=== PATIENT | female | born 1965 | race Caucasian/White ===

== ENCOUNTER → 2020-07-03 12:39 | Outpatient (CLI) | payer MEDICARE, SELFPAY ==
--- NOTE | ~2020-07-03 | MM_ITS ---
EXAMINATION: MM screening more BI w hector HISTORY: Screening TECHNIQUE: Craniocaudal and mediolateral oblique 3-D tomosynthesis images were obtained and synthetic 2-D images were generated. CAD analysis was submitted and interpreted. COMPARISON: Comparison to multiple prior studies sequentially, with oldest reviewed study dated 02/18. BREAST PARENCHYMAL COMPOSITION: There are scattered areas of fibroglandular density. FINDINGS: . The right breast is stable without evidence for malignancy. There are multiple developing masses scattered throughout the left breast. IMPRESSION: 1. Developing left breast masses. 2. Additional mammographic views and possible breast ultrasound are recommended. BI-RADS Category 0: Incomplete: Needs additional imaging evaluation. Reviewed, dictated and finalized at location A. IMPRESSION: 1. Developing left breast masses. 2. Additional mammographic views and possible breast ultrasound are recommended . BI-RADS Category 0: Incomplete: Needs additional imaging evaluation.
== END ==
PROVIDERS: Visit Provider Nurse Practitioner Obstetrics & Gynecology
DX: Z12.31 Encounter for screening mammogram for malignant neoplasm of breast (principal); N63.25 Unspecified lump in the left breast, overlapping quadrants
CPT/HCPCS: 77063; 77067

== ENCOUNTER → 2020-07-17 08:33 | Outpatient (CLI) | payer MEDICARE, SELFPAY ==
--- NOTE | ~2020-07-17 | MMUS_ITS ---
EXAMINATION: MM diagnostic mammo unilat LT, US breast LT complete HISTORY: Developing left breast masses reported on 07/03/2020 bilateral digital screening mammogram TECHNIQUE: Additional 3-D tomosynthesis images of the left breast were performed and synthetic 2-D im ages were generated. CAD analysis was submitted and interpreted. High resolution complete left breast ultrasound was performed. COMPARISON: 07/03/2020, 03/23/2018 bilateral digital screening mammogram examinations FINDINGS: MAMMOGRAPHIC FINDINGS: There is an approximately 8 mm lobular opacity at approximately 12:00 position, situated 6 cm deep to the nipple on craniocaudal view (MLO Tomosynthesis image 36/75). Circumscribed oval approximately 7.4 mm opacity in the upper outer quadrant of the left breast (ML To mosynthesis image 26/75). 5.6 mm oval circumscribed opacity in the lower inner quadrant of the left breast (mL Tomosynthesis (M L image 44/75). 7 mm circumscribed opacity in the posterior upper outer left breast (ML Tomosynthesis image 18/75). 4 mm circumscribed opacity situated anteriorly in the upper outer quadrant (ML Tomosynthesis image 23 /75) ULTRASOUND: 12:00 4 cm from nipple: Parallel circumscribed sonolucency measuring approximately 2 x 9 x 6 mm dimen sean, likely a benign cyst 1:00 areolar area: 3.5 x 5.1 mm x 4.7 mm rounded lesion with suggestion of a fatty hilus, likely a be nign lymph node 2:00 7 cm from nipple: 4.8 x 4.4 mm hypoechoic lesion without internal vascularity or posterior shado wing 8:00 4 cm from nipple: Approximately 3.2 x 3.8 mm hypoechoic lesion without internal vascularity or p osterior shadowing 9:00 subareolar area: 2.2 x 3.3 mm hypoechoic lesion without internal vascularity or posterior shadow ing IMPRESSION: 1. Probable benign masses 2. 6 month diagnostic left mammogram and complete left breast ultrasound follow-up are recommended. BI-RADS category 3, probably benign findings. Reviewed, dictated and finalized at location A. IMPRESSION: 1. Probable benign masses 2. 6 month diagnostic left mammogram and complete left breast ultrasound follow -up are recommended. BI-RADS category 3, probably benign findings.
== END ==
PROVIDERS: Visit Provider Nurse Practitioner Obstetrics & Gynecology
DX: R92.8 Other abnormal and inconclusive findings on diagnostic imaging of breast (principal)
CPT/HCPCS: 76641; 77065

== ENCOUNTER 2020-10-15 06:34 | Outpatient (NON) | payer MEDICARE, SELFPAY ==
[2020-10-15 17:51] LABS: SARS-CoV-2 RNA PCR Negative
== END 2020-10-15 06:35 ==
PROVIDERS: PCP Family Medicine; Visit Provider Nurse Practitioner Family
DX: Z20.828 Contact with and (suspected) exposure to other viral communicable diseases (principal); J06.9 Acute upper respiratory infection, unspecified
CPT/HCPCS: 87635; C9803; U0003

== ENCOUNTER 2020-12-16 16:08 | Outpatient (CLI) | payer MEDICARE, SELFPAY ==
--- NOTE | ~2020-12-16 | CT_ITS ---
EXAMINATION: CT abdomen pelvis w con DATE: 12/16/2020 16:51 INDICATION: Left lower quadrant abdominal pain. TECHNIQUE: Computed tomography (CT) of the abdomen and pelvis was performed with 100 mL Omnipaque 350 intravenous contrast. Automated exposure control and iterative reconstruction technique were employe d. The dose-length product was 696.51 mGy-cm. COMPARISON: CT abdomen and pelvis 08/19/2004 FINDINGS: The visualized portions of the lung bases demonstrate minimal atelectasis. No pleural effus ion. The heart size is normal. No pericardial effusion. The liver, gallbladder, spleen, pancreas, adr enal glands, and left kidney are normal. There is a 2.1 cm cyst in right kidney. There are small bila teral inguinal hernias containing fat. There are no dilated loops of bowel. The appendix is not visua lized. There are no pathologically enlarged lymph nodes. The bladder is distended. There is trabecula tion of bladder wall. Bilateral tubal ligation clips are noted. In the lower anterior abdominal wall, there are areas of fat stranding with calcifications, consistent with chronic fat necrosis. There is severe lumbar spondylosis. IMPRESSION: 1. Bilateral inguinal hernias containing fat. 2. Distended bladder with trabeculation of the bladder wall, which may be seen with neurogenic bladde r. Reviewed, dictated and finalized at location A. 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 Bilateral inguinal hernias containing fat. 2. Distended bladder with trabeculation of the bladder wall, which may be seen with neurogenic bladder.
== END 2020-12-16 16:09 | disposition home or self-care (01) ==
PROVIDERS: PCP Family Medicine; Visit Provider Nurse Practitioner Family
DX: R10.814 Left lower quadrant abdominal tenderness (principal); R19.7 Diarrhea, unspecified; K40.20 Bilateral inguinal hernia, without obstruction or gangrene, not specified as recurrent
CPT/HCPCS: 74177; Q9967

== ENCOUNTER 2020-12-21 09:56 | Outpatient (CLI) | payer MEDICARE, SELFPAY ==
[2020-12-21 10:46] LABS: Basophils Percent Auto 0.2 % (0.2-1.2); Eosinophils Absolute Auto 0.1 K/mm3 (0-0.3); Eosinophils Percent Auto 2.6 % (0-4.4); Hematocrit 40.2 % (37.0-47.0); Lymphocytes Absolute Auto 2.03 K/mm3 (0.9-3.2); Lymphocytes Percent Auto 37.7 % (18.3-44.2); Mean Corpuscular HGB Conc 32.3 g/dl (32-36); Mean Corpuscular Hemoglobin 29.8 pg (26-34); Mean Corpuscular Volume 92.2 fl (80-100); Mean Platelet Volume 9.7 fl (7.4-10.4); Monocytes Absolute Auto 0.4 K/mm3 (0.1-0.6); Monocytes Percent Auto 6.5 % (2.6-8.5); Neutrophils Absolute Auto 2.9 K/mm3 (1.3-6.7); Platelet Count Result 199 k/mm3 (150-375); Red Blood Count 4.36 M/mm3 (4.2-5.4); Red Cell Distribution Width 13.4 % (11.5-14.5); White Blood Count 5.4 K/mm3 (4.5-10.0)
[2020-12-21 10:56] LABS: Alanine Aminotransferase 27 U/L (4-35); Albumin Level 4.3 g/dL (3.5-5.1); Alkaline Phosphatase 54 U/L (38-126); Anion Gap 8 mmol/L (8-16); Aspartate Amino Transferase 29 U/L (14-36); Bilirubin,Total 0.3 mg/dL (0.2-1.3); Blood Urea Nitrogen 21 mg/dL (7-17); Carbon Dioxide 28 mmol/L (22-30); Chloride 106 mmol/L (98-107); Estimated Glomerular Filt Rate 57; Glucose 104 mg/dL (65-105); Potassium 4.4 mmol/L (3.4-5.0); Sodium 142 mmol/L (137-145)
== END 2020-12-21 09:57 | disposition home or self-care (01) ==
PROVIDERS: PCP Family Medicine; Visit Provider Nurse Practitioner Family
DX: R19.7 Diarrhea, unspecified (principal)
CPT/HCPCS: 36415; 80053; 85025; 87045; 87046; 87177; 87209; 87427

== ENCOUNTER 2021-01-05 13:04 | Outpatient (CLI) | payer MEDICARE, SELFPAY | END 2021-01-05 13:05 | disposition home or self-care (01) | LOC: ANHBWCLAB 13:08 | PROVIDERS: PCP Family Medicine; Visit Provider Physician Assistant Medical | DX: R19.7 Diarrhea, unspecified (principal); R10.9 Unspecified abdominal pain | CPT/HCPCS: 87324 ==

== ENCOUNTER 2021-01-15 10:49 | Outpatient (CLI) | payer MEDICARE, SELFPAY ==
[2021-01-15 11:28] LABS: Anion Gap 4 mmol/L (8-16); Blood Urea Nitrogen 30 mg/dL (7-17); Calcium 8.5 mg/dL (8.4-10.2); Carbon Dioxide 30 mmol/L (22-30); Chloride 104 mmol/L (98-107); Estimated Glomerular Filt Rate > 60; Glucose 96 mg/dL (65-105); Sodium 138 mmol/L (137-145)
== END 2021-01-15 10:50 | disposition home or self-care (01) ==
PROVIDERS: PCP Family Medicine; Visit Provider Physician Assistant Medical
DX: N28.9 Disorder of kidney and ureter, unspecified (principal)
CPT/HCPCS: 36415; 80048

== ENCOUNTER 2021-01-29 14:07 | Outpatient (CLI) | payer MEDICARE, SELFPAY ==
--- NOTE | 2021-01-29 14:42 | ECG_ITS ---
Measurements Intervals [place] Rate: 70 P: 67 AR: 153 QRS: 5 QRSD: 80 T: 42 QT: 386 QTc: 419 Interpretive Statements SINUS RHYTHM LOW VOLTAGE- PRECORDIAL LEADS BASELINE ARTIFACT- I, III, AVL, AVF BORDERLINE ECG Electronically Signed On 01-29-2021 14:55:20 CDT by Saji Mohamud D.O.
== END 2021-01-29 14:08 | disposition home or self-care (01) ==
PROVIDERS: PCP Family Medicine; Referring Provider Anesthesiology; Visit Provider Surgery
DX: K40.20 Bilateral inguinal hernia, without obstruction or gangrene, not specified as recurrent (principal); E78.2 Mixed hyperlipidemia; Z01.818 Encounter for other preprocedural examination; R94.31 Abnormal electrocardiogram [ECG] [EKG]
CPT/HCPCS: 36415; 86850; 86900; 86901; 93005

== ENCOUNTER → 2021-01-30 01:23 | Outpatient (CLI) | payer MEDICARE, SELFPAY ==
[2021-01-30 18:52] LABS: SARS-CoV-2 RNA PCR Negative
== END ==
PROVIDERS: PCP Family Medicine; Visit Provider Surgery
DX: Z01.812 Encounter for preprocedural laboratory examination (principal); Z20.822 Contact with and (suspected) exposure to COVID-19
CPT/HCPCS: C9803; U0003; U0005

== ENCOUNTER 2021-02-02 01:25 | Day surgery (SDC) | payer MEDICARE, SELFPAY ==
[2021-01-18 12:28] VITALS: BMI 28.7
[2021-02-02] VITALS (10 sets, daily range): BP systolic 96–127; BP diastolic 48–83; PULSE 68–84; RESP 12–16; TEMP 36.5–36.6; O2SAT 95–100
[2021-02-02] MEDS: ACETAMINOPHEN 500 MG TABLET 1000 MG PO (07:40)
[2021-02-02] MEDS: LACTATED RINGERS 1,000 ML 30 ML IV CONT ×3 (07:50→13:00)
[2021-02-02] MEDS: KETOROLAC 15 MG/ML VIAL (*BKC) IV PUSH (07:51)
--- NOTE | 2021-02-02 08:23 | WPDANESEPPF ---
Anes - Initial Pre Proc Eval Procedure: Operation Date: 02/02/21 09:00 Proposed Procedures p Laparoscopic Bilateral Inguinal Hernia Repair With Mesh, Davinci Assisted - Kristian Vasquez DO Date/Time: 02/02/21 08:23 Surgeon: Kristian Vasquez DO Pre Op Diagnosis: Bilateral inguinal hernia Patient Data Age: 55 Gender: F Height: 5 ft 6.5 in Weight: 84.2 kg Last Vital Signs Temp 36.6 C 02/02/21 07:08 Pulse 81 02/02/21 07:08 Resp 16 02/02/21 07:08 BP 96/48 L 02/02/21 07:08 Pulse Ox 98 02/02/21 07:08 Allergies Allergy/AdvReac Type Severity Reaction Status Date / Time ciprofloxacin Allergy Severe Anaphylactic Verified 02/02/21 07:34 Shock clindamycin Allergy Severe Anaphylaxis Verified 02/02/21 07:34 Quinolones Allergy Severe Anaphylactic Verified 02/02/21 07:34 Shock Home Medications Medication Instructions Recorded Confirmed Type baclofen 10 mg tablet 10 mg PO TID tablet 10/21/19 02/02/21 History duloxetine 60 mg capsule,delayed 60 mg PO DAILY 10/21/19 02/02/21 History release gabapentin 800 mg tablet 800 mg PO BID 10/21/19 02/02/21 History interferon beta-1a (albumin) 44 44 mcg SUB-Q 3XW 10/21/19 02/02/21 History mcg/0.5 mL subcutaneous syringe loratadine 10 mg tablet 10 mg PO DAILY 10/21/19 02/02/21 History ondansetron HCl 4 mg tablet 4 mg PO Q8H #20 tablet 05/15/20 02/02/21 Rx atorvastatin 10 mg tablet 10 mg PO DAILY #90 tablet 11/10/20 02/02/21 Rx alprazolam 0.25 mg tablet 0.25 mg PO TID PRN #90 tablet 12/14/20 02/02/21 Rx cholecalciferol (vitamin D3) 75 75 mcg PO DAILY 12/16/20 02/02/21 History mcg (3,000 unit) tablet estradiol-norethindrone acet 0.5 1 tablet PO DAILY 12/16/20 02/02/21 History mg-0.1 mg tablet meloxicam [Mobic] 15 mg PO DAILY 01/18/21 02/02/21 History Patient hx anesthesia problems: none Family hx anesthesia problems: none PMFSH Past Medical History Medical History Anxiety BMI 29.0-29.9,adult IBS (irritable bowel syndrome) Mixed hyperlipidemia Multiple sclerosis Surgical History Surgical History H/O tubal ligation History of appendectomy History of tonsillectomy Family History Family History Mother Family history of diabetes mellitus in first degree relative Family history of malignant neoplasm of kidney Sibling Family history of diabetes mellitus in first degree relative Diabetes mellitus Father Heart disease Diabetes mellitus Hypertension Social History Social History Smoking packs per day: 1 Smoking cigarettes per day: 20.0 Years smoked: 20 Smoking pack-years: 20.00 Smoking status: Former smoker Tobacco type: cigarettes Alcohol intake: never Substance use: never Substance use type: marijuana Other substance usage details: Aleyda Living arrangements: with family Additional occupation/education comments: disabled Gender identity (if verbalized by the patient): Female Spiritual care concerns: No Anes - Eval Final PreProcedure Day of Procedure 02/02/21 08:23 Patient weight: overweight Heart: regular rate and rhythm Lungs: clear to auscultation Airway: Mallampati scale class III Neurological: alert and oriented Last oral intake: >/= 8 hours ASA classification: III Emergent: no Anesthetic plan: proceed Anesthesia type and monitoring: general ETT and standard monitoring Informed Consent: The patient's anesthetic plan and its attendant risks and benefits were discussed with the patient/family/POA. Questions were solicited and answers provided to the satisfaction of the patient/family/POA.
[2021-02-02] MEDS: SCOPOLAMINE 1.5 MG PATCH TRANSDERM (08:30)
--- NOTE | 2021-02-02 09:08 | WPDHPUPDATE1 ---
History and Physical Update Update Date/Time: 02/02/21 09:08 History and Physical has been reviewed, including an updated exam of the patient. There are NO changes in the patient's condition. Risks, benefits, and alternatives have been discussed and questions answered. Patient agrees to proceed with procedure.
[2021-02-02] MEDS: ceFAZolin 2 GM/D5W 50 ML 2 GM/50 ML BAG IVPB (09:40)
[2021-02-02] MEDS: BUPIVACAINE/EPINEPHRINE 0.5% 30 ML VIAL INFILTRATE (10:09)
--- NOTE | 2021-02-02 10:44 | SUR.OPER ---
PROGRIP MESH 15X10, LOT [id number], EXP X2 BILATERAL INGUINAL MESH. TO STERILE FIELD 1014.
--- NOTE | 2021-02-02 10:47 | SUR.OPER ---
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 FEET +4 STRENGTH AND = BILATERAL. FRIEND ANGEL STATED SHE DRAGS HER LEFT LEG A LITTLE AND PATIENT VERBILIZED AGREEMENT.
--- NOTE | 2021-02-02 11:10 | PM.PROC ---
Procedure Note - Detailed Date of procedure: 02/02/21 Pre-op diagnosis: Bilateral inguinal hernia Post-op diagnosis: same (Bilateral indirect inguinal hernia) Procedure performed: Laparoscopic bilateral inguinal hernia repair with Progrip mesh, da Abhishek assisted Description of procedure: Procedure as well as risks, benefits, and alternatives were discussed with the patient. Written consent was obtained and placed in chart prior to procedure. Patient was brought back to surgical suite. She was placed supine on operating table. Time-out was done to confirm patient and procedure. She was then intubated by Anesthesia Department. Her abdomen was prepped and draped in sterile fashion using chlorhexidine prep. 0.5% bupivacaine with epinephrine was infiltrated at each location for incision. An 8 mm incision was made in the left lateral abdomen, and a 5 mm Optiview trocar was advanced through the abdominal layers under direct visualization. Once inside the abdominal cavity, carbon dioxide insufflation was used to create a pneumoperitoneum. A camera was inserted and the abdominal cavity was inspected. The patient was placed in slight Trendelenburg position. An 8 millimeter incision was made on the right lateral abdomen and an 8 millimeter trocar was inserted under direct visualization. Another 8 millimeter incision was made just superior to the umbilicus and an 8 millimeter trocar was inserted under direct visualization. The 5 mm port was then removed and this was replaced with another 8 mm robotic port. The robotic arms were brought up to the patient's bedside and secured to the ports. The camera and instruments were inserted. I then moved over to the robotic console and took control of the camera and instruments. After careful inspection of the abdominal cavity, I began scoring the peritoneum along the left lower quadrant using scissors with electrocautery. The preperitoneal plane was entered and this was carefully dissected caudally along the inferior epigastric vessels. Careful dissection with scissors with electrocautery and blunt dissection was used to continue this dissection. I dissected far enough laterally to allow for mesh placement, and also dissected medially to identify the pubic arch and Norm's ligament. The hernia sac was identified and carefully dissected posteriorly. The round ligament was identified and this was transected using scissors with electrocautery to allow for flat mesh placement. Once an adequate pocket was created, I then placed the mesh within the preperitoneal pocket and carefully unfolded it. The mesh was centered on the hernia defect with adequate overlap circumferentially. The inferior edge of the mesh was inspected to ensure that it was far enough away from the peritoneal edge. The mesh appeared in proper position overlying the entire myopectineal orifice. The peritoneum was then closed over the mesh using a 3-0 V-lock running absorbable suture. I then began scoring the peritoneum along the right lower quadrant using scissors with electrocautery. The preperitoneal plane was entered and this was carefully dissected caudally along the inferior epigastric vessels. Careful dissection with scissors with electrocautery and blunt dissection was used to continue this dissection. I dissected far enough laterally to allow for mesh placement, and also dissected medially to identify the pubic arch and Norm's ligament. The hernia sac was identified and carefully dissected posteriorly. The round ligament was identified and this was transected using scissors with electrocautery to allow for flat mesh placement. Once an adequate pocket was created, I then placed the mesh within the preperitoneal pocket and carefully unfolded it. The mesh was centered on the hernia defect with adequate overlap circumferentially. The inferior edge of the mesh was inspected to ensure that it was far enough away from the peritoneal edge. The mesh appeared i
[2021-02-02] MEDS: fentaNYL CITRATE INJ (*CRX) 100 MCG/2 ML VIAL 25 MCG IV PUSH ×4 (11:50→12:24)
[2021-02-02] MEDS: oxyCODONE HCL (*CRX) 5 MG TAB IR PO (12:58)
== END 2021-02-02 14:20 | disposition home or self-care (01) ==
PROVIDERS: PCP Family Medicine; Visit Provider Surgery
PROC: 8E0Y4CZ Robotic Assisted Procedure of Lower Extremity, Percutaneous Endoscopic Approach (ICD-10-PCS; CPT 49650; principal; 2021-02-02 09:00)
DX: K40.20 Bilateral inguinal hernia, without obstruction or gangrene, not specified as recurrent (principal); E78.5 Hyperlipidemia, unspecified; G35 Multiple sclerosis; K58.9 Irritable bowel syndrome, unspecified; F41.9 Anxiety disorder, unspecified; Z87.891 Personal history of nicotine dependence; F12.90 Cannabis use, unspecified, uncomplicated
CPT/HCPCS: 49650; S2900; 36415; 86850; 86900; 86901; 93005; A9270; C1781; C9803; J0690; J1100; J1885; J2250; J2405; J2704; J2710; J3010; J7030; J7120; U0003; U0005

== ENCOUNTER 2021-02-18 12:26 | Outpatient (CLI) | payer MEDICARE, SELFPAY ==
[2021-02-18 13:09] LABS: Anion Gap 5 mmol/L (8-16); Blood Urea Nitrogen 24 mg/dL (7-17); Calcium 9.2 mg/dL (8.4-10.2); Carbon Dioxide 30 mmol/L (22-30); Chloride 107 mmol/L (98-107); Estimated Glomerular Filt Rate > 60; Glucose 102 mg/dL (65-105); Potassium 4.1 mmol/L (3.4-5.0); Sodium 142 mmol/L (137-145)
== END 2021-02-18 12:27 | disposition home or self-care (01) ==
PROVIDERS: PCP Family Medicine; Visit Provider Physician Assistant Medical
DX: N28.9 Disorder of kidney and ureter, unspecified (principal)
CPT/HCPCS: 36415; 80048

== ENCOUNTER → 2022-06-20 15:20 | Outpatient (CLI) | payer MEDICARE, SELFPAY ==
--- NOTE | ~2022-06-20 | CT_ITS ---
EXAMINATION: CT abdomen pelvis w con DATE: 06/20/2022 15:46 INDICATION: Bilateral lower quadrant abdominal pain. History of hernia. TECHNIQUE: Computed tomography (CT) of the abdomen and pelvis was performed with 100 CC Omnipaque 350 intravenous contrast. Automated exposure control and iterative reconstruction technique were employe d. Exam dose: 970.23 mGy-cm total exam DLP. COMPARISON: December 16, 2020 CT abdomen pelvis FINDINGS: There is mild discoid atelectasis or scarring at the posterior left lung base. The lung bas es are clear of infiltrate or consolidation. Normal heart size. No pericardial or pleural effusion. The liver, gallbladder, bile ducts, spleen, pancreas, pancreatic duct, and adrenal glands and kidneys are unremarkable except for a stable 2.2 cm lower pole right renal cyst. Uterus is present. Status p ost bilateral tubal ligation. There is atherosclerotic calcification but normal caliber of the abdominal aorta, iliac and femoral a rteries. No intraperitoneal or retroperitoneal or pelvic mass lesion or adenopathy or ascites. No bowel obstruction or intraperitoneal free air. Bilateral fat-containing inguinal hernias. Small fat-containing umbilical hernia. There is some calcifications of the anterior abdominal wall. No suspicious osteolytic or osteoblastic lesions. Degenerative changes of the thoracic and lumbar spi ne. IMPRESSION: Small fat-containing umbilical hernia Bilateral fat-containing inguinal hernias Stable 2.2 cm right renal cyst Reviewed, dictated and finalized at Location A. Reviewed, dictated and finalized at location B.
== END ==
PROVIDERS: PCP Physician Assistant Medical; Visit Provider Physician Assistant Medical
DX: K42.9 Umbilical hernia without obstruction or gangrene (principal); K40.20 Bilateral inguinal hernia, without obstruction or gangrene, not specified as recurrent; N28.1 Cyst of kidney, acquired
CPT/HCPCS: 74177; Q9967

== ENCOUNTER 2024-02-19 11:13 | Outpatient (CLI) | payer MEDICARE, SELFPAY ==
--- NOTE | ~2024-02-19 | US_ITS ---
EXAMINATION: US soft tissue lower back DATE: 02/19/2024 11:48 INDICATION: Benign lipomatous neoplasm of the skin. TECHNIQUE: Multiple grayscale and Doppler ultrasound images of the lower back were obtained. COMPARISON: CT abdomen and pelvis 06/20/2022 FINDINGS: There is no abnormal soft tissue mass in the patient's area of concern in the lower back. IMPRESSION: 1. No abnormal soft tissue mass in the patient's area of concern in the lower back. Reviewed, dictated and finalized at location A. IMPRESSION: 1. No abnormal soft tissue mass in the patient's area of concern in the lower b ack.
== END 2024-02-19 11:14 ==
LOC: MICIMG 11:13
PROVIDERS: PCP Family Medicine; Visit Provider Nurse Practitioner Adult Health
DX: D17.1 Benign lipomatous neoplasm of skin and subcutaneous tissue of trunk (principal)
CPT/HCPCS: 76705